=== PATIENT | male | born 1960 | race Caucasian/White ===

== ENCOUNTER → 2016-12-26 | Day surgery (SDC) | payer OTHER ==
[~2016-12-26] MED LIST: LISINOPRIL-HCTZ1 T19; METFORMIN HCL500 M1 PO; SIMVASTATIN20 MG
--- NOTE | ~2016-12-26 | OR ---
Unit #: [id number] #: [id number] Patient: KEVEN BERNARD [id number] [address] [address] [id number] MR#: [id number] NAME: KEVEN BERNARD ROOM: Date of Procedure: 12/26/2016 Admission Date: 12/26/2016 Surgeon: Jarod Morgan M.D. : 1960 Attending Physician: Jarod Morgan M.D. Primary Care Physician: Boris Mora Jr., M.D. OPERATIVE REPORT PROCEDURE PERFORMED Colonoscopy with snare polypectomy. INDICATIONS FOR PROCEDURE The patient with personal history of colon polyps in the past, undergoing colonoscopy for surveillance. MEDICATIONS Monitored anesthesia. POSTOPERATIVE FINDINGS 1. Polyp, sigmoid colon, 6 mm, snared and sent for histopathology. 2. Diverticulosis. 3. Prep was good. PLAN Follow up on the pathology report. Repeat colonoscopy in 5 years. DESCRIPTION OF PROCEDURE The patient was explained of the procedure, risks, and benefits along with risks and benefits of anesthesia. He was brought to the endoscopy room. Propofol anesthesia was given. Rectal exam was done, which was normal. Colonoscope was lubricated, passed up the rectum, advanced under direct vision all the way to the cecum. Cecum was identified by ileocecal valve and appendiceal orifice. I then started to pull the scope out carefully looking. Polyp seen in the sigmoid colon was snared and sent for histopathology. Rest of the mucosa was normal and healthy. Diverticulosis and internal hemorrhoids noted. Gently, the scope was pulled out. He tolerated it well. No major complications were seen. Dictated by... Jason Grullon/shad TD: 01/05/2017 00:50 JOB #: [id number] Unit #: [id number] #: [id number] Patient: KEVEN BERNARD OPERATIVE REPORT X Jarod Morgan MD PROCEDURE OPERATIVE NOTE
== END | disposition home or self-care (01) ==
LOC: COPS 08:58
DX: Z12.11 Encounter for screening for malignant neoplasm of colon (principal); D12.5 Benign neoplasm of sigmoid colon; K57.30 Diverticulosis of large intestine without perforation or abscess without bleeding; K64.8 Other hemorrhoids; I10 Essential (primary) hypertension; E11.9 Type 2 diabetes mellitus without complications; E78.5 Hyperlipidemia, unspecified; F17.210 Nicotine dependence, cigarettes, uncomplicated; Z85.828 Personal history of other malignant neoplasm of skin; Z79.899 Other long term (current) drug therapy; Z90.89 Acquired absence of other organs; Z98.890 Other specified postprocedural states
CPT/HCPCS: 82947; 88305; J2250